=== PATIENT | male | born 1930 | race Caucasian/White ===

== ENCOUNTER 2019-04-03 06:28 | Observation (INO) | payer MEDICARE ==
[2019-03-30 11:33] LABS: BASOPHILS % (AUTO) 0.5 % (0.0-5.0); EOSINOPHILS % (AUTO) 2.7 % (0.0-8.0); HEMATOCRIT 48.5 % (42-54); LYMPHOCYTES % (AUTO) 26.1 % (21.0-51.0); MEAN CORPUSCULAR HEMOGLOBIN 30.6 pg (27.0-33.0); MEAN CORPUSCULAR VOLUME 89.8 fL (79-99); NEUTROPHILS % (AUTO) 61.7 % (40.0-77.0); NUCLEATED RED BLOOD CELLS 0.1 % (0.0-0.19); PLATELET COUNT (AUTO) 128 K/uL (130-400); RED CELL DISTRIBUTION WIDTH 13.3 % (11.0-15.5)
[2019-03-30 11:44] LABS: CREATININE 1.3 mg/dL (0.5-1.5); POTASSIUM 4.2 mmol/L (3.5-5.1)
[2019-03-30 11:49] VITALS: BP 140/96
[2019-03-30 11:53] LABS: INR 1.06 (0.85-1.15); PARTIAL THROMBOPLASTIN TIME 28.1 SEC (26.3-35.5); PROTHROMBIN TIME 11.1 SEC (9.6-11.6)
--- NOTE | 2019-03-30 17:19 | NUR ---
ABNORMAL EKG REPORTED ABNORMAL EKG TO DR. NIRAV MD. NO NEW ORDERS. OK TO PROCEED WITH PROCEDURE.
[~2019-04-03] VITALS: Ht 168.9 cm; Wt 90.7 kg
[2019-04-03] VITALS (24 sets, daily range): BP systolic 137–187; BP diastolic 79–106
[~2019-04-03 06:28] MED LIST: APIX2.5T PO; ASCO500C6 PO; DORZOLAMIDE; FIBER CAP; FINA5TAB41 PO; FISH OIL; HYDR25TA PO; LATA2.5D2 OP; MULT-1203 PO
[2019-04-03] MEDS ORDERED: LACTATED RINGERS 1000ML 1,000 ML IV ONE (06:58)
[2019-04-03] MEDS ORDERED: DORZ10DR19 OU (07:27)
[2019-04-03] MEDS ORDERED: APIX5TAB PO (07:27)
[2019-04-03] MEDS ORDERED: CEFAZOLIN SODIUM 1 GM VIAL ONE (07:33)
[2019-04-03] MEDS ORDERED: PROPOFOL 10 MG/ML 20ML VIAL IV ONE (07:44)
[2019-04-03] MEDS ORDERED: ONDANSETRON HCL 4 MG/2 ML VIAL ONE (07:44)
[2019-04-03] MEDS ORDERED: MIDAZOLAM HCL 1 MG/ML 2ML VIAL ONE (07:44)
[2019-04-03] MEDS ORDERED: DEXAMETHASONE SOD PHOSPHATE 10MG/ML 1ML VIAL ONE (07:44)
[2019-04-03] MEDS ORDERED: LIDOCAINE PF 2% 5ML ABBOJECT ONE (07:44)
[2019-04-03] MEDS ORDERED: FENTANYL CITRATE PF 50 MCG/1 ML 2ML VIAL ONE ×2 (07:44→07:56)
[2019-04-03] MEDS ORDERED: ROCURONIUM 10MG/1ML SYR 10 MG/ML ML ONE (07:44)
[2019-04-03] MEDS ORDERED: BUPIVACAINE/EPI/PF 0.25% 30ML VIAL IJ ONE (07:53)
[2019-04-03] MEDS ORDERED: GLYCOPYRROLATE 1 MG/5 ML SYRINGE ONE (08:02)
[2019-04-03] MEDS ORDERED: EPHEDRINE SULFATE 50 MG/ML AMPULE ONE (08:28)
--- NOTE | 2019-04-03 10:20 | NUR ---
POST SURGERY PATIENT RECEIVED FROM PACU VIA HOSPITAL BED IN STABLE CONDITION. HE HAS BEEN ORIENTED TO ROOM AND USE OF CALL LIGHT. DRESSING TO NECK IS DRY AND INTACT. THERE IS SHADOWING NOTED AND A [place] DRAIN WAS REPORTED BUT NOT VISIBLE UNDER THE DRESSING. NO C/O PAIN AT THIS TIME. BED IS IN LOWEST POSITION AND LOCKED WITH PERSONAL BELONGINGS WITHIN REACH.
[2019-04-03] MEDS: ASCORBIC ACID 500 MG TAB PO SCH (10:55)
[2019-04-03] MEDS ORDERED: TRAMADOL HCL 50 MG TABLET PO PRN (11:30)
[2019-04-03] MEDS: CEPHALEXIN 500 MG CAPSULE PO SCH ×2 (12:09→19:43)
[2019-04-03] MEDS: DEXTROSE 5 % AND 0.9 % NACL 1,000 ML IV SCH (12:09)
[2019-04-03] MEDS ORDERED: HYDROCHLOROTHIAZIDE 25 MG TABLET PO SCH (13:45)
[2019-04-03] MEDS: DORZOLAMIDE HCL 2% 10ML DROPS OU SCH (19:44)
[2019-04-03] MEDS ORDERED: LATANOPROST 2.5 ML DROPS OP SCH (21:00)
[2019-04-04] VITALS: BP 141/69
[2019-04-04 04:00] VITALS: BP 143/81
[2019-04-04 04:27] LABS: HEMATOCRIT 44.6 % (42-54); MEAN CORPUSCULAR HEMOGLOBIN 30.4 pg (27.0-33.0); MEAN CORPUSCULAR HGB CONC 34.2 g/dL (32.0-36.0); MEAN CORPUSCULAR VOLUME 88.8 fL (79-99); NUCLEATED RED BLOOD CELLS 0.1 % (0.0-0.19); PLATELET COUNT (AUTO) 125 K/uL (130-400); RED BLOOD CELL COUNT(AUTO) 5.02 MIL/uL (4.50-6.20); RED CELL DISTRIBUTION WIDTH 13.3 % (11.0-15.5); WHITE BLOOD COUNT (AUTO) 12.4 K/uL (4.8-10.8)
[2019-04-04] MEDS: DEXTROSE 5 % AND 0.9 % NACL 1,000 ML IV SCH (06:30)
[2019-04-04 07:30] VITALS: BP 137/98
[2019-04-04] MEDS ORDERED: HOME MEDICATION 1 EACH PO SCH (09:00)
[2019-04-04] MEDS ORDERED: FINASTERIDE 5 MG TABLET PO SCH (09:00)
[2019-04-04] MEDS ORDERED: MULTIVITAMIN TABLET PO SCH (09:00)
[2019-04-04] MEDS ORDERED: HYDROCHLOROTHIAZIDE 25 MG TABLET PO SCH (09:00)
[2019-04-04] MEDS: DORZOLAMIDE HCL 2% 10ML DROPS OU SCH (09:26)
[2019-04-04] MEDS: ASCORBIC ACID 500 MG TAB PO SCH (09:26)
[2019-04-04] MEDS: CEPHALEXIN 500 MG CAPSULE PO SCH (09:26)
--- NOTE | 2019-04-04 10:00 | NUR ---
DRESSING CHANGE DR. POMPA AT BEDSIDE. DRESSING TO NECK REMOVED, SUTURES INTACT. [place] REMOVED BY DR. POMPA. DRY DRESSING APPLIED, SECURED WITH TAPE. TOLERATED DRESSING WELL. WILL CONTINUE TO MONITOR PT CLOSELY.
[2019-04-04 11:00] VITALS: BP 141/82
--- NOTE | 2019-04-04 11:22 | NUR ---
DISCHARGE PATIENT GIVEN DISCHARGE INSTRUCTIONS AND EDUCATION, INCLUDING SIDE EFFECTS ON NEW PRESCRIBED MEDICATIONS AND FOLLOW UP APPOINTMENTS. PATIENT VERBALIZED UNDERSTANDING OF ALL EDUCATION GIVEN VIA TEACH BACK. NO QUESTIONS OR CONCERNS VOICED AT THIS TIME. IV DISCONTINUED, CATHETER INTACT. DRESSING CHANGE DONE PER MD ORDERS. PATIENT PENDING RIDE FOR [employer]. NO SIGNS OF DISTRESS NOTED UPON DISCHARGE. SPOUSE AT SIDE. WILL CONTINUE TO BE OBSERVED. Addendum: 04/04/19 at 1128 by TY RODRIGUEZ RN RN Amended: Links added.
--- NOTE | 2019-04-04 13:53 | NUR ---
NEEMA NOTE PT IS IN OPP STATUS- DC'ING HOME; NO CONCERNS ADDRESSED BY PATIENT OR PRIMARY RN; DEFERRED DETAILED ASSESSMENT AT THIS TIME Addendum: 04/04/19 at 1354 by NIKKI AZUL RN CM Amended: Links added.
== END 2019-04-04 11:00 | disposition home or self-care (01) ==
LOC: DAH 06:28 → DAHIP 06:29 → 4AH 10:07
PROVIDERS: ADMIT Otolaryngology Plastic Surgery within the Head & Neck; ATTEND Otolaryngology Plastic Surgery within the Head & Neck
DX: E04.1 Nontoxic single thyroid nodule (principal); E89.0 Postprocedural hypothyroidism; E78.00 Pure hypercholesterolemia, unspecified; I12.9 Hypertensive chronic kidney disease with stage 1 through stage 4 chronic kidney disease, or unspecified chronic kidney disease; N18.3 Chronic kidney disease, stage 3 (moderate); I48.2 Chronic atrial fibrillation; Z85.850 Personal history of malignant neoplasm of thyroid; Z79.899 Other long term (current) drug therapy; Z79.01 Long term (current) use of anticoagulants
CPT/HCPCS: 36415 ×4; 36591; 60220; 80048; 82310 ×3; 85025; 85027; 85610; 85730; 86850; 86900; 86901; 86922; 88307; 93005; C1729; G0378 ×25; J0690; J1100; J2001; J2250; J2405; J2704; J3010 ×2; J3490 ×3; J7042; J7120